=== PATIENT | male | born 1980 | race African-American/Black ===

== ENCOUNTER 2021-01-01 21:30 | Emergency (ER) | payer OTHER ==
[~2021-01-01] VITALS: Ht 172.7 cm; Wt 70.0 kg
[~2021-01-01 21:30] MED LIST: HYDR-3164 PO; NAPR-682 PO
[2021-01-02] MEDS ORDERED: HYDR-2761 PO ×2 (00:52→00:54)
[2021-01-02] MEDS ORDERED: CYCL10TA2 PO ×2 (00:52→00:54)
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
[2021-01-02 01:25] VITALS: BP 136/81
[2021-01-02] MEDS ORDERED: HYDROcodone/APAP 5/325MG 1 TAB TABLET PO ONE (01:30)
[2021-01-02] MEDS ORDERED: CYCLOBENZAPRINE 10 MG TABLET. PO ONE (01:30)
== END 2021-01-02 01:30 | disposition home or self-care (01) ==
LOC: ER 21:30
DX: S13.9XXA Sprain of joints and ligaments of unspecified parts of neck, initial encounter (principal); M54.41 Lumbago with sciatica, right side; V49.49XA Driver injured in collision with other motor vehicles in traffic accident, initial encounter; Y92.488 Other paved roadways as the place of occurrence of the external cause; Y93.89 Activity, other specified; Y99.8 Other external cause status
CPT/HCPCS: 99283

== ENCOUNTER 2021-04-18 19:40 | Emergency (ER) | payer MEDICARE, OTHER ==
[~2021-04-18 19:40] MED LIST changes: +CYCL10TA19 PO; +HYDR-2761 PO
== END 2021-04-18 20:00 | disposition left against medical advice (07) ==
LOC: ER 19:40
DX: R07.81 Pleurodynia (principal); M25.559 Pain in unspecified hip; Z53.21 Procedure and treatment not carried out due to patient leaving prior to being seen by health care provider; V80.010A Animal-rider injured by fall from or being thrown from horse in noncollision accident, initial encounter; Y93.89 Activity, other specified; Y92.488 Other paved roadways as the place of occurrence of the external cause; Y99.8 Other external cause status